=== PATIENT | male | born 1950 | race Two or more races ===

== ENCOUNTER → 2017-05-08 | Day surgery (SDC) | payer MEDICARE ==
[~2017-05-08] VITALS: Ht 165.1 cm; Wt 82.5 kg
[~2017-05-08] MED LIST: 0.9% Sodium Chloride 1,000 ML IV SCH; HYDR25TA4 PO; INSU100V28 SUBQ; LIP40 PO; LISI30TA5 PO; METF500T4 PO; NPH,100V11 SUBQ; PANT40TA3 PO; SILD20TA14 PO; Sodium Chloride LOK Flush 10 mL Syringe IV PRN; TAMS0.4C98 PO; TIMO5DRO26 AFFECT_EYE; fentaNYL-PF 50 mCg/mL 2 mL Inj IVPUSH PRN
[2017-05-08 11:02] VITALS: BP 127/79; PULSE 74; RESP 16; O2SAT 99
[2017-05-08 12:35] VITALS: BP 119/73; PULSE 72; RESP 12; O2SAT 97
[2017-05-08 12:48] VITALS: BP 116/68; PULSE 74; RESP 12; O2SAT 98
[2017-05-08 12:57] VITALS: BP 117/74; PULSE 72; RESP 12; O2SAT 97
--- NOTE | 2017-05-08 14:15 | ENDO ---
[address] [address] ENDOSCOPY PROCEDURE PATIENT: ROXI PRATER : 1950 MR#: [id number] ADMIT: 05/08/2017 JOB ID: [id number] DATE OF SERVICE: 05/08/2017 TYPE OF OPERATION: Esophagogastroduodenoscopy, biopsy, colonoscopy. PREOPERATIVE DIAGNOSIS(ES): Dysphagia and colorectal cancer screening and epigastric pain. POSTOPERATIVE DIAGNOSIS(ES): 1. Nonerosive gastritis. 2. Pandiverticulosis. ANESTHESIA: Fentanyl 100 mcg, Versed 5 mg IV administered. COMPLICATIONS: None. BLOOD LOSS: Minimal. DESCRIPTION OF PROCEDURE: After risks and benefits explained to the patient, informed consent was obtained. After anesthesia administered, upper endoscope was then inserted in the mouth, intubated into the esophagus, stomach, second portion of duodenum. Mucosa carefully examined. After procedure done, scope withdrawn, procedure terminated. Colonoscope was inserted from rectum to the cecum. Mucosa carefully examined. Prep of the patient was fair. After the procedure was done, the scope withdrawn, procedure terminated. FINDINGS: Upon inspection of the esophagus, there were no masses, ulcers, or lesions. Z-line located at 40 cm from incisors. Upon entering the stomach, there was mild nonerosive gastritis that was seen. No masses, ulcers were recognized. Retroflexion was normal. Duodenal bulb, first and second portion normal. Biopsies taken in antrum, body, mid and distal esophagus. Upon inspection of the anus, no masses, hemorrhoids, ulcers, or fissures that were seen throughout the entire examination. There was diverticulosis seen throughout the entire colon. No polyps or masses were seen. Retroflexion showed small internal hemorrhoids. IMPRESSION: 1. Small internal hemorrhoids. 2. Pandiverticulosis. 3. Mild nonerosive gastritis. RECOMMENDATIONS: Await pathology results. Repeat colonoscopy in 10 years for colorectal cancer screening.
--- NOTE | 2017-05-12 16:58 | PATH ---
SURGICAL PATHOLOGY Attending Physician:Sumanth Garcia MD CASE STATUS: Signed Out PATIENT NAME: ROXI PRATER PID: [id number] : 1950 DATE COLLECTED:05/08/2017 22:04 SPECIMEN: 1: Stomach, Antrum, Biopsy 2: Gastric, Biopsy 3: Esophagus, Biopsy 4: Esophagus, Biopsy CLINICAL HISTORY: 1). ANTRUM 2). GASTRIC BODY, RULE OUT H.PYLORI 3). MID ESOPHAGUS 4). DISTAL ESOPHAGUS FINAL DIAGNOSIS: 1. Antrum, Biopsy: Gastric antral mucosa with chronic gastritis. Negative for Helicobacter organisms by immunohistochemistry. Negative for intestinal metaplasia, dysplasia or malignancy. 2. Gastric Body, Biopsy: Gastric body mucosa with chronic gastritis. Negative for Helicobacter organisms by immunohistochemistry. Negative for intestinal metaplasia, dysplasia or malignancy. 3. Mid Esophagus, Biopsy: Squamous epithelium with no diagnostic abnormality. Intraepithelial eosinophils are not increased. Negative for dysplasia or malignancy. 4. Distal Esophagus, Biopsy: Squamocolumnar junctional mucosa with specialized intestinal metaplasia, consistent with Barahona's esophagus. Negative for dysplasia or malignancy. ICD10: R13.10 R10.13 GROSS DESCRIPTION: The specimen is received in four formalin filled containers labeled with the patient's name. 1). The specimen is filled labeled "antral" and consists of 2 portions of tissue which aggregate to zero 3 x 0.3 x 0.2 CM. The specimen is entirely submitted in cassette 1A. 2). The specimen is labeled "gastric body" and consists of a 0.4 x 0.2 x 0.2 CM portion of tissue which is entirely submitted in cassette 2A. 3). The specimen is labeled "mid esophagus" and consists of 2 extremely tiny portions of tissue which aggregate to less than 0.1 CM. The specimen is entirely submitted in cassette 3A. 4). The specimen is labeled "distal esophagus" and consists of 2 tiny portions of tissue which aggregate to 0.1 x 0.1 x 0.1 CM. The specimen is entirely submitted in cassette 4A. 05/08/2017DC MICRO DESCRIPTION: Part 1: An immunohistochemical stain was performed to evaluate for Helicobacter organisms and is negative. A control stain showed appropriate reactivity. Part 2: An immunohistochemical stain was performed to evaluate for Helicobacter organisms and is negative. A control stain showed appropriate reactivity. * This test was developed and its performance characteristics determined by [facility]. It has not been cleared or approved by the U.S. Food and Drug Administration. The FDA has determined that such clearance or approval is not necessary. This test is used for clinical purposes. It should not be regarded as investigational or for research. ICD-9 CODES: CPT CODES: 1: 59356, 93544 2: 16751, 77732 3: 94754 4: 79295 Electronically Signed Out Herman Salazar MD, Ph.D. [facility] [address], [place] [address] Technical component performed at [facility], [address], [place], [address]
== END | disposition home or self-care (01) ==
LOC: END 03-27 00:13
PROVIDERS: ATTEND Internal Medicine Gastroenterology
DX: Z12.11 Encounter for screening for malignant neoplasm of colon (principal); K57.30 Diverticulosis of large intestine without perforation or abscess without bleeding; K64.8 Other hemorrhoids; K29.50 Unspecified chronic gastritis without bleeding; R13.10 Dysphagia, unspecified; Z79.4 Long term (current) use of insulin; Z79.84 Long term (current) use of oral hypoglycemic drugs; Z79.899 Other long term (current) drug therapy
CPT/HCPCS: 43239; 88305; 88342; 99153; G0121; G0500; J2250; J3010; J7030

== ENCOUNTER 2017-05-18 08:16 | Emergency (ER) | payer MEDICARE ==
[~2017-05-18] VITALS: Ht 165.1 cm; Wt 81.8 kg
[~2017-05-18 08:16] MED LIST changes: -0.9% Sodium Chloride 1,000 ML IV SCH; -Sodium Chloride LOK Flush 10 mL Syringe IV PRN; -fentaNYL-PF 50 mCg/mL 2 mL Inj IVPUSH PRN
--- NOTE | 2017-05-18 08:21 | ED.REPORT ---
HPI-Ear Pain/Problem/FB Date of Service May 18, 2017 ED Provider: Agnes Clark MD Pt is a 67y/o male with hx of HTN and DM who presents to the ED complaining of a hearing aid stuck in his right ear onset yesterday night. He c/o associated right ear pain. He denies any other symptoms. The pt reports that he tried to pull his hearing aid out and only a part of it came off, resulting in the rest of the hearing aid getting stuck in his ear. Nursing Notes Stated Complaint: HEARING AID STUCK IN EAR Chief Complaint: ENT & Mouth Nursing Notes Reviewed: Yes Allergies: Coded Allergies: No Known Allergies (Verified Allergy, Unknown, 02/14/15) Scheduled Atorvastatin (Lipitor) 40 Mg Tablet 80 MG PO DAILY Hydrochlorothiazide (Hydrochlorothiazide) 25 Mg Tablet 25 MG PO DAILY Lisinopril (Lisinopril) 30 Mg Tablet 30 MG PO DAILY Metformin (Metformin) 500 Mg Tablet 500 MG PO BIDWM NPH, Human Insulin Isophane (HUMulin-N U100 Insulin Vial) 100 Unit/1 Ml Vial 22 UNIT SUBQ HS Pantoprazole DR (Pantoprazole DR) 40 Mg Tablet.dr 40 MG PO BID Tamsulosin (Flomax) 0.4 Mg Capsule 0.4 MG PO DAILY Timolol (Betimol) 5 Ml Drops 1 DROP AFFECT_EYE DIRECTED Miscellaneous Medications Insulin Regular, Human (HUMulin-R U100 Insulin Vial) 100 Unit/1 Ml Vial 8 UNIT SUBQ Sildenafil Citrate (Sildenafil) 20 Mg Tablet 20 MG PO General Time Seen by MD: 08:21 Chief Complaint Other (stuck hearing aid in his R ear) Hx Obtained From: Patient Arrived By: Walk-in Onset Occurred: Yesterday Symptom Duration: Since onset Location: : Ear canal (R) Quality: Painful Severity: Current: Mild Severity: Maximum: Moderate Recent Healthcare: No recent hospitalization, Recent doctor visit Similar Sx Previous: No Past Medical History Past Medical History Arthritis of L hip Reports: Diabetes mellitus, GERD, Hypertension Past Surgical History Denies Smoking History Never Smoker Social History Alcohol Use: "Social" Drug Use: Denies drug use Ambulatory Status Independent Review of Systems + foreign body in R ear (hearing aid piece) Ears / Nose / Throat: Reports: Earache right (secondary to stuck hearing aid), Denies: Ear drainage right, Earache bilateral, Earache left Complete sys rev & neg: except as marked. Physical Exam Initial Vital Signs Vital Signs (First) Date Time Temp Pulse Resp B/P Pulse Ox O2 Delivery O2 Flow Rate FiO2 05/18/17 08:22 73 18 156/96 99 Room Air Initial VS: Reviewed Head / Eyes: Atraumatic, Normocephalic Neurologic: Alert, Oriented, Nonfocal Psychiatric: Mood/affect normal, Behavior normal General/Constitutional: Awake, Alert ENT: Airway patent Hearing aid stuck in the mid-canal of the right ear without inflammation, pus, or dirty debris. Procedures Foreign Body Removal - Ear Removed plastic ear bud piece from the R ear with alligator forceps without bleeding, swelling, discharge, or purulence. Time: 08:48 Procedure Performed by: ED physician Consent / Setup: Consent from patient Foreign Body / # / Location: Single foreign body, Right ear Removal of FB: Complete Post-Procedure / Complications: Normal exam post-proced, No complications, Condition improved, Tolerated procedure well, Patient stable Re-Eval/Medical Decision Source of Hx: Old records Re-Evaluation/Progress : Time of Eval: 08:48 Patient Status: Condition resolved Re-Evaluation/Progress Note: Pt rechecked. Removed foreign body from the pt's R ear with his consent. Informed pt of successful foreign body removal and plan for discharge. The pt understands and agrees with plan for discharge. F/U instructions and RTER warnings given. All questions addressed at this time. Counseled Regarding: Diagnosis, Need for follow-up, When/why to return to ED Discharge & Departure Primary Impression: Foreign body in ear Encounter type: initial encounter Laterality: right Qualified Code: T16.1XXA - Foreign body in right ear, initial encounter Disposition: Home Discharge Condition All VS Reviewed: Yes Condition: Stable Patient Instructions: Ear Foreign Body (ED) You had the soft plastic ear bud from your hearing aid stuck in the ear canal We were able to remove it in the ER. There is no damage to the ear canal and no signs of infection. I hope you don't have problems like this in the future! Referrals: Napoleon Cam DO (PCP) Scribe Attestation Portions of this note were transcribed by Mayelin Rico and Ashlyn Deluna. I , Dr. Clark personally performed the history, physical exam and medical decision-making; I reviewed and confirmed the accuracy of the information in the transcribed note. Signed by: Brianna Roth, 05/18/17. copies to: Napoleon Cam Shawna L MD May 18, 2017 08:21 Mayelin Rico May 18, 2017 08:44 Ashlyn Heller May 18, 2017 09:07 the transcribed note. Signed by: Brianna Roth, 05/18/17. copies to: Napoleon Cam Shawna L MD May 18, 2017 08:21 Mayelin Rico May 18, 2017 08:44 Ashlyn Heller May 18, 2017 09:07
[2017-05-18 08:22] VITALS: BP 156/96; RESP 18; O2SAT 99
== END 2017-05-18 08:48 | disposition home or self-care (01) ==
LOC: SED 08:16
DX: T16.1XXA Foreign body in right ear, initial encounter (principal); X58.XXXA Exposure to other specified factors, initial encounter; Y93.9 Activity, unspecified; Y92.9 Unspecified place or not applicable; Y99.8 Other external cause status; Z79.84 Long term (current) use of oral hypoglycemic drugs; K21.9 Gastro-esophageal reflux disease without esophagitis; I10 Essential (primary) hypertension